=== PATIENT | female | born 1965 | race African-American/Black ===

== ENCOUNTER 2022-12-13 07:15 | Day surgery (SDC) | payer OTHER ==
[~2022-12-13] VITALS: Ht 154.9 cm; Wt 115.2 kg
[~2022-12-13 07:15] MED LIST: ATOR20TA50 PO; CARV3.1240 PO; FURO40TA4 PO; HYDR-4296 PO; LORA10CA12 PO; SEVE800T8 PO
[2022-12-13] MEDS ORDERED: ANGIOMAX 250 MG VIAL IV ONE (08:18)
[2022-12-13] MEDS ORDERED: HEPARIN SODIUM (PORCINE) 5000 UNITS/ML 1ML VIAL ONE (08:18)
[2022-12-13] MEDS ORDERED: VERAPAMIL 2.5MG/ML INJ 2ML VIAL IV ONE (08:18)
[2022-12-13] MEDS ORDERED: fentaNYL CITRATE 100 MCG/2 ML VL ONE ×2 (08:18→08:47)
[2022-12-13] MEDS ORDERED: SODIUM CHL 0.9% 0 ML ONE (08:19)
[2022-12-13] MEDS ORDERED: MIDAZOLAM HCL 2MG/2ML 2ml VIAL (1mg/ml) ONE (08:19)
[2022-12-13] MEDS ORDERED: LIDOCAINE 2%HCL (LOCAL ANESTH.) INJ 20ML MDV ONE (08:25)
[2022-12-13] MEDS ORDERED: IODIXANOL 320MG/ML 100ML BTL IV ONE ×2 (08:25→09:20)
[2022-12-13] MEDS ORDERED: hydrALAZINE HCL 20 MG/ML VL ONE (09:16)
[2022-12-13] MEDS ORDERED: LABETALOL HCL 5 MG/ML ML 20ML VIAL IV ONE (09:28)
[2022-12-13] MEDS ORDERED: HYDROmorphone HCL 2 MG/ML VL/or syr ONE (09:33)
== END 2022-12-13 12:31 | disposition home or self-care (01) ==
LOC: CATH 07:15
PROVIDERS: ATTEND Internal Medicine
DX: I13.2 Hypertensive heart and chronic kidney disease with heart failure and with stage 5 chronic kidney disease, or end stage renal disease (principal); N18.5 Chronic kidney disease, stage 5; I07.1 Rheumatic tricuspid insufficiency; I50.30 Unspecified diastolic (congestive) heart failure; I50.20 Unspecified systolic (congestive) heart failure; E11.22 Type 2 diabetes mellitus with diabetic chronic kidney disease; I37.1 Nonrheumatic pulmonary valve insufficiency; E78.00 Pure hypercholesterolemia, unspecified; Z87.891 Personal history of nicotine dependence; Z88.5 Allergy status to narcotic agent; Z82.49 Family history of ischemic heart disease and other diseases of the circulatory system; Z83.3 Family history of diabetes mellitus; Z83.42 Family history of familial hypercholesterolemia; Z79.899 Other long term (current) drug therapy; Z20.822 Contact with and (suspected) exposure to COVID-19
CPT/HCPCS: 93460; C1725; C1757; C1769; C1887; C1894; J0360; J1170; J1644; J2250; J3010; Q9967; U0003; 99152; 99153

== ENCOUNTER 2025-06-10 09:42 | Day surgery (SDC) | payer OTHER ==
[~2025-06-10] VITALS: Ht 154.9 cm; Wt 107.5 kg
[~2025-06-10 09:42] MED LIST changes: +GABA-1308 PO; -HYDR-4296 PO; +HYDR25TA88 PO; +LORA-622 PO; -LORA10CA12 PO; +NIFE1TAB30 PO
[2025-06-10] MEDS ORDERED: fentaNYL CITRATE 100 MCG/2 ML VL IV ONE (10:00)
[2025-06-10] MEDS ORDERED: MIDAZOLAM HCL 2MG/2ML 2ml VIAL (1mg/ml) IV ONE (10:00)
[2025-06-10] MEDS ORDERED: LIDOCAINE VISCOUS 2% 15ML UD PO ONE (10:00)
--- NOTE | 2025-06-10 12:58 | DVHOP2 ---
Operative Report Operative Report CARDIAC DISPATCH COORDINATOR PROCEDURE REPORT [place], [place] Date of Service: 06/10/25 Extension Service Specialist In Charge: Zhanna Sands MD PROCEDURES PERFORMED: trans esophageal echocardiogram, conscious sedation <15 mins, doppler assesment complete SHELBI, PREOPERATIVE DIAGNOSES: tricusipd regurg POSTOP DIAGNOSIS: Same DESCRIPTION OF PROCEDURE: The patient or appropriate family signed informed consent understanding the risks, benefits and alternatives of the procedure, they wished to proceed. The patient was brought to the cardiac research laboratory technician in n.p.o. state. the patient was given 15 ml of oral viscous lidocaine. the patient was placed in a left lateral decubitus position with bite block in mouth. NExt conscious sedation was administered per research laboratory technician protocol with _1_ mg of versed and __50_ mcg of fentanyl. Next a SHELBI probe was advanced to the mid esophagus with ease and multiple planar images obtained. At the completion of the procedure , probe was removed and there were no immediate complications. FINDINGS: Left Ventricle: Normal LV size and function, LVEF estimated at 55 % moderate LVH Right Ventricle: NOrmal function Left atrium: enlarged Right atrium: normal Left atrial appendage: no thrombus noted, Aortic valve: trileaflet valve, no severe or AI Mitral Valve: structurally normal, mild mitral regurg, no MS Tricuspid Valve: mild to moderate tricuspid regurgitaiton, no TS Pulmonic Valve: structurally normal, no severe PIor PS Interatrial septum: negative color flow for R to L shunt Ascending aorta: no severe plaquing ZHANNA SANDS MD Jun 10, 2025 12:58
== END 2025-06-10 13:00 | disposition home or self-care (01) ==
LOC: CATH 09:42
PROVIDERS: ATTEND Internal Medicine
DX: R01.1 Cardiac murmur, unspecified (principal); I08.1 Rheumatic disorders of both mitral and tricuspid valves; E11.22 Type 2 diabetes mellitus with diabetic chronic kidney disease; I13.0 Hypertensive heart and chronic kidney disease with heart failure and stage 1 through stage 4 chronic kidney disease, or unspecified chronic kidney disease; I50.9 Heart failure, unspecified; N18.9 Chronic kidney disease, unspecified; E78.00 Pure hypercholesterolemia, unspecified; Z79.899 Other long term (current) drug therapy; Z98.890 Other specified postprocedural states; Z79.84 Long term (current) use of oral hypoglycemic drugs
CPT/HCPCS: 93312; J2250; J3010; J7040; 99152